=== PATIENT | male | born 1975 ===

== ENCOUNTER 2021-04-11 13:06 | Emergency (ER) | payer SELFPAY ==
[~2021-04-11] VITALS: Ht 165.1 cm; Wt 52.2 kg
[2021-04-11] MEDS ORDERED: MAG HYDROX/AL HYDROX/SIMETH 30 ML UDC ONE (13:23)
[2021-04-11] MEDS ORDERED: FAMOTIDINE/PF INJ 20 MG/2 ML VIAL IV ONE ×2 (13:23→13:30)
[2021-04-11] MEDS ORDERED: MAG HYDROX/AL HYDROX/SIMETH 30 ML UDC PO ONE (13:30)
--- NOTE | 2021-04-11 13:32 | NUR ---
Patient came in to the [facility], from [place], c/o abd pain and diarrhea. On room air, breathing evenly and unlabored. Connected to the monitor and pulse ox. Kept comfortable, will continue to monitor accordingly.
--- NOTE | 2021-04-11 13:33 | NUR ---
IV started and blood drawned and sent to lab.
--- NOTE | 2021-04-11 13:33 | NUR ---
Dr. Colindres at bedside for eval.
[2021-04-11 13:43] LABS: BASOPHILS % (AUTO) 0.2 % (0.0-2.0); HEMATOCRIT 30 % (39-51); HEMOGLOBIN 10.2 g/dL (13.5-17.5); LYMPHOCYTES # (AUTO) 0.8 K/uL (0.8-4.8); LYMPHOCYTES % (AUTO) 8.1 % (20.0-44.0); MEAN CORPUSCULAR HGB CONC 34 g/dl (31.0-36.0); MEAN CORPUSCULAR VOLUME 119 fL (80-96); MONOCYTES # (AUTO) 0.2 K/uL (0.1-1.30); MONOCYTES % (AUTO) 2.4 % (2.0-12.0); NEUTROPHILS # (AUTO) 8.6 K/uL (1.8-8.9); NEUTROPHILS % (AUTO) 89.3 % (43.0-81.0); PLATELET COUNT (AUTO) 224 K/uL (150-450); RED BLOOD CELL COUNT(AUTO) 2.51 MIL/uL (4.5-6.0); WHITE BLOOD COUNT (AUTO) 9.6 K/uL (4.3-11.0)
[2021-04-11 13:50] VITALS: BP 100/61
--- NOTE | 2021-04-11 13:51 | NUR ---
Patient does not wish to proceed with medical care recommended by Dr. Colindres. Patient given information related to possible complications, up to and including , which could occur as a result of leaving the hospital at this time. Patient verbalizes understanding of risks involved due to leaving against medical advice. Patient has signed AMA form.
[2021-04-11 13:52] LABS: CARBON DIOXIDE 25 mmol/L (21-32); CHLORIDE 104 mmol/L (98-107); CREATININE 0.8 mg/dL (0.6-1.3); GLUCOSE 105 mg/dL (74-106); POTASSIUM 4.2 mmol/L (3.5-5.1); SODIUM SERUM 138 mmol/L (136-145); UREA NITROGEN, BLOOD 17 mg/dL (7-18)
[2021-04-11 13:58] LABS: ALANINE AMINOTRANSFERASE 44 U/L (12-78); ALBUMIN 3.5 g/dL (3.4-5.0); ALKALINE PHOSPHATASE 95 U/L (46-116); ASPARTATE AMINOTRANSFERASE 35 U/L (15-37); BILIRUBIN,DIRECT 0.4 mg/dL (0.0-0.2); LIPASE 51 U/L (73-393)
[2021-04-11 14:06] LABS: CALCIUM, SERUM 7.6 mg/dL (8.5-10.1)
[2021-04-11 15:06] LABS: BAND % (MANUAL) 4 % (0.0-5.0); LYMPHOCYTES % (MANUAL) 15 % (16-48); MONOCYTES % (MANUAL) 3 % (0-11.0); NEUTROPHILS % (MANUAL) 78 (42-76)
== END 2021-04-11 13:51 | disposition left against medical advice (07) ==
LOC: ER 13:07
DX: G89.29 Other chronic pain (principal); R10.84 Generalized abdominal pain; R00.0 Tachycardia, unspecified; D64.9 Anemia, unspecified; Z59.0 Homelessness; Z53.29 Procedure and treatment not carried out because of patient's decision for other reasons
CPT/HCPCS: 36415; 80048; 80076; 83690; 84484; 85007; 85025; 93005; 96374; 99284; J3490; G0480